=== PATIENT | female | born 1970 | race Caucasian/White ===

== ENCOUNTER 2017-04-27 20:40 | Emergency (ER) | payer SELFPAY ==
[2017-04-27 20:42] VITALS: BP 136/95; PULSE 114; RESP 20; TEMP 99; O2SAT 98
[2017-04-28] MEDS ORDERED: OXYC30TA62 PO (11:51)
[2017-04-28] MEDS ORDERED: CYCL1TAB29 PO (11:51)
[2017-04-28] MEDS ORDERED: SERO300T PO (11:51)
[2017-04-28] MEDS ORDERED: SIMV20TA PO (11:51)
[2017-04-28] MEDS ORDERED: DIAZ5 PO (11:51)
[2017-04-28] MEDS ORDERED: LISI10TA PO (11:51)
[2017-04-28] MEDS ORDERED: IBUP800T23 PO (11:51)
[2017-04-28] MEDS ORDERED: METH2.5T PO (11:51)
[2017-04-28] MEDS ORDERED: CIPR-9 PO (14:55)
== END 2017-04-27 21:51 | disposition left against medical advice (07) ==
LOC: NED 20:40
DX: R10.9 Unspecified abdominal pain (principal)
CPT/HCPCS: 99281

== ENCOUNTER 2017-04-28 11:17 | Emergency (ER) | payer MEDICARE, OTHER ==
[2017-04-28 11:37] VITALS: BP 105/76; PULSE 108; RESP 16; TEMP 98; O2SAT 99
[2017-04-28] MEDS ORDERED: SIMV20TA PO (11:51)
[2017-04-28] MEDS ORDERED: OXYC30TA62 PO (11:51)
[2017-04-28] MEDS ORDERED: CYCL1TAB29 PO (11:51)
[2017-04-28] MEDS ORDERED: SERO300T PO (11:51)
[2017-04-28] MEDS ORDERED: LISI10TA PO (11:51)
[2017-04-28] MEDS ORDERED: DIAZ5 PO (11:51)
[2017-04-28] MEDS ORDERED: IBUP800T23 PO (11:51)
[2017-04-28] MEDS ORDERED: METH2.5T PO (11:51)
[2017-04-28 11:59] LABS: GLUCOSE,URINE NEG (NEG); KETONE, URINE NEG (NEG); NITRITE,URINE NEG (NEG); PH, URINE 5.5 (5.0-8.5)
[2017-04-28 12:07] LABS: BLOOD, URINE MOD (NEG)
[2017-04-28 12:08] LABS: BACTERIA, URINE MOD /hpf; METHOD OF COLLECTION CLEAN CATCH; RBC, URINE 15-19 /hpf (0-3); SQUAMOUS EPITHELIAL CELL URINE > 8 /hpf (0-5); URINE COLOR YELLOW (YELLW/STRAW); WBC, URINE 100-200 /hpf (0-5)
[2017-04-28 12:09] LABS: COMMENT (UR) CULTURE INDICATED; CULTURE IF INDICATED CULTURE INDICATED
--- NOTE | 2017-04-28 12:43 | PD ---
HPI Chief Complaint: Complaint Time Seen by Provider: 12:20 Travel History International Travel<30 days: No Contact w/Intl Traveler<30days: No Traveled to known affect area: No History of Present Illness HPI 46-year-old female with history of psoriasis currently on methotrexate presents emergency department for evaluation of right flank pain and hematuria for 2 days. Patient reports approximately 5 days ago she developed dysuria and suprapubic pain and pressure this was associated with a subjective fever and 3 episodes of vomiting 2 days ago. She reports that on Thursday all symptoms resolved and she developed right flank pain. She denies fever, abdominal pain, nausea or vomiting, dysuria at this time. She reports the pain in the right flank region is constant, nonradiating, worse with movement, 7 out of 10 severity. Patient reports the pain is unrelieved with her chronic pain medicines. PFSH Past Medical History Narrative Medical Psoriasison methotrexate, hypertension, hyperlipidemia, chronic neck and back pain Hx Anticoagulant Therapy: No Cardiovascular Problems: Yes (HTN, CHOL) High Cholesterol: Yes Diabetes: No Hypertension: Yes Musculoskeletal: Yes (Chronic pain R/T traumatic injuries ) Migraines: Yes Tetanus Vaccination: < 5 Years Influenza Vaccination: Yes ?: Not LMP: 2 weeks ago Tubal Ligation: Yes Social History Alcohol Use: Yes (Occ.) Tobacco Use: Yes (1 PPD) Substance Use: No Allergies-Medications (Allergen,Severity, Reaction): Coded Allergies: Adhesives (Verified Allergy, Severe, 04/28/17) Penicillin (Verified Allergy, Severe, 04/28/17) Reported Meds & Prescriptions Reported Meds & Active Scripts Active Reported Methotrexate 2.5 Mg Tab 4 Tab PO Q7D Flexeril (Cyclobenzaprine HCl) 10 Mg Tab 10 Mg PO TID PRN Seroquel (Quetiapine Fumarate) 300 Mg Tab 300 Mg PO DAILY Ibuprofen 800 Mg Tab 800 Mg PO TID PRN Simvastatin 20 Mg Tab 20 Mg PO DAILY Lisinopril-Hctz 10-12.5 Mg Tab 1 Tab PO DAILY Oxycontin (Oxycodone HCl) 30 Mg Tab 15 Mg PO Q8HR PRN Valium (Diazepam) 5 Mg Tab 5 Mg PO DAILY Review of Systems Except as stated in HPI: all other systems reviewed are Neg Physical Exam Narrative GENERAL: [-Alert, well-appearing female, no acute distress] SKIN: Focused skin assessment warm/dry. HEAD: Atraumatic. Normocephalic. EYES: Pupils equal and round. No scleral icterus. No injection or drainage. ENT: No nasal bleeding or discharge. Mucous membranes pink and moist. NECK: Trachea midline. No JVD. CARDIOVASCULAR: Regular rate and rhythm. No murmur appreciated. RESPIRATORY: No accessory muscle use. Clear to auscultation. Breath sounds equal bilaterally. GASTROINTESTINAL: Abdomen soft, non-tender, nondistended. Hepatic and splenic margins not palpable. MUSCULOSKELETAL: No obvious deformities. No clubbing. No cyanosis. No edema. NEUROLOGICAL: Awake and alert. No obvious cranial nerve deficits. Motor grossly within normal limits. Normal speech. PSYCHIATRIC: Appropriate mood and affect; insight and judgment normal. BACK: Right-sided CVA tenderness Data Data Last Documented VS Vital Signs Date Time Temp Pulse Resp B/P Pulse Ox O2 Delivery O2 Flow Rate FiO2 04/28/17 14:35 90 16 93/64 99 Room Air 04/28/17 11:37 98.0 Orders Urinalysis - C+S If Indicated (04/28/17 11:42) Urine Culture (04/28/17 11:50) Basic Metabolic Panel (Bmp) (04/28/17 12:32) Complete Blood Count With Diff (04/28/17 12:32) Lactic Acid (04/28/17 12:32) Ct Abd/Pel W/O Iv Contrast (04/28/17 12:32) Iv Access Insert/Monitor (04/28/17 12:32) Ciprofloxacin 400 Mg Premix (Cipro 400 M (04/28/17 12:45) Sodium Chloride 0.9% Flush (Ns Flush) (04/28/17 12:45) Labs Laboratory Tests Test 04/28/17 04/28/17 11:50 12:45 Urine Collection Type CLEAN CATCH Urine Color YELLOW Urine Turbidity SLIGHT Urine pH 5.5 Urine Specific [place] 1.007 Urine Protein NEG mg/dL Urine Glucose (UA) NEG mg/dL Urine Ketones NEG mg/dL Urine Occult Blood MOD Urine Nitrite NEG Urine Bilirubin NEG Urine Leukocyte Esterase LARGE Urine RBC 15-19 /hpf Urine WBC 100-200 /hpf Urine Squamous Epithelial > 8 /hpf Cells Urine Bacteria MOD /hpf Microscopic Urinalysis Comment CULTURE INDICATED Urine Collection Time 11:50 White Blood Count 8.9 TH/MM3 Red Blood Count 4.19 MIL/MM3 Hemoglobin 13.1 GM/DL Hematocrit 38.5 % Mean Corpuscular Volume 91.9 FL Mean Corpuscular Hemoglobin 31.2 PG Mean Corpuscular Hemoglobin 34.0 % Concent Red Cell Distribution Width 13.3 % Platelet Count 279 TH/MM3 Mean Platelet Volume 8.0 FL Neutrophils (%) (Auto) 68.7 % Lymphocytes (%) (Auto) 22.1 % Monocytes (%) (Auto) 6.6 % Eosinophils (%) (Auto) 1.6 % Basophils (%) (Auto) 1.0 % Neutrophils # (Auto) 6.1 TH/MM3 Lymphocytes # (Auto) 2.0 TH/MM3 Monocytes # (Auto) 0.6 TH/MM3 Eosinophils # (Auto) 0.1 TH/MM3 Basophils # (Auto) 0.1 TH/MM3 CBC Comment DIFF FINAL Differential Comment Sodium Level 142 MEQ/L Potassium Level 4.7 MEQ/L Chloride Level 107 MEQ/L Carbon Dioxide Level 30.5 MEQ/L Anion Gap 5 MEQ/L Blood Urea Nitrogen 9 MG/DL Creatinine 0.82 MG/DL Estimat Glomerular Filtration 75 ML/MIN Rate Random Glucose 95 MG/DL Lactic Acid Level 1.3 mmol/L Calcium Level 9.2 MG/DL MDM Medical Decision Making Medical Screen Exam Complete: Yes Emergency Medical Condition: Yes Differential Diagnosis Pyelonephritis, nephrolithiasis, UTI Narrative Course 46-year-old female with chief complaint of right flank pain and hematuria. Patient is currently on methotrexate for her psoriasis. At this time she denies fever, chills, abdominal pain, nausea or vomiting. On exam she appears mildly uncomfortable. Nontoxic. She has right-sided CVA tenderness. IV access established, UA, labs and CT pending UA: Positive RBCs, WBCs and bacteria CBC: Unremarkable. WBC 8.9 BMP: Unremarkable LACTIC: 1.3 CT abdomen and pelvis: Small bilateral nonobstructing renal calculi. Uncomplicated colonic diverticulitis. Bilateral inguinal fat-containing hernias. 1440 patient reassessed at this time. Diagnostic studies discussed in detail with patient. She remains nontoxic appearing. Labs are reassuring patient can be treated for pyelonephritis on outpatient basis. Return precautions discussed with patient. She verbalizes understanding and agrees to plan Diagnosis Primary Impression: Pyelonephritis Referrals: Primary Care Physician Additional Instructions: Take the antibiotic as prescribed. Treatment plenty of fluids. Return to the emergency department if he developed severe pain, fever or chills , nausea and vomiting. Follow-up with your primary doctor regarding incidental findings on your CT. Scripts Ciprofloxacin (Cipro)500 Mg Xez319 Mg PO BID #14 TAB Ref 0 Prov:Farhana Tay 04/28/17 Disposition: 01 DISCHARGE HOME Condition: Stable Farhana Tay Apr 28, 2017 12:43
[2017-04-28] MEDS ORDERED: SODIUM CHLORIDE 0.9% FLUSH 10 ML FLUSH IV FLUSH PRN (12:45)
[2017-04-28] MEDS ORDERED: CIPROFLOXACIN 400 MG PREMIX 200 ML IV ONE (12:45)
[2017-04-28 12:59] LABS: AUTOMATED NEUTROPHIL # 6.1 TH/MM3 (1.8-7.7); BASOPHIL # 0.1 TH/MM3 (0-0.2); EOSINOPHIL # 0.1 TH/MM3 (0-0.4); EOSINOPHIL % 1.6 % (0.0-4.0); HEMATOCRIT 38.5 % (35.0-46.0); HEMO FLAGS DIFF FINAL; LYMPH % 22.1 % (9.0-44.0); MEAN CELL VOLUME 91.9 FL (80.0-100.0); MEAN CORPUSCULAR HEMOGLOBIN 31.2 PG (27.0-34.0); MONO % 6.6 % (0.0-8.0); NEUT % 68.7 % (16.0-70.0); PLATELET COUNT 279 TH/MM3 (150-450); RED BLOOD COUNT 4.19 MIL/MM3 (4.00-5.30); RED CELL DISTRIBUTION WIDTH 13.3 % (11.6-17.2); WHITE BLOOD COUNT 8.9 TH/MM3 (4.0-11.0)
[2017-04-28 13:08] LABS: POTASSIUM 4.7 MEQ/L (3.5-5.1)
[2017-04-28 13:11] LABS: BICARBONATE 30.5 MEQ/L (21.0-32.0)
--- NOTE | 2017-04-28 14:31 | RADHPO ---
EXAM DATE/TIME: 04/28/2017 13:12 [facility] COMPARISON: No previous studies available for comparison. INDICATIONS : Right lower back pain with hematuria. ORAL CONTRAST: No oral contrast ingested. RADIATION DOSE: 24.07 CTDIvol (mGy) MEDICAL HISTORY : Hypertension. SURGICAL HISTORY : Tubal ligation. ENCOUNTER: Initial ACUITY: 1 day PAIN SCALE: 7/10 LOCATION: Right lower quadrant TECHNIQUE: Volumetric scanning of the abdomen and pelvis was performed. Using automated exposure control and ad justment of the mA and/or kV according to patient size, radiation dose was kept as low as reasonably achievable to obtain optimal diagnostic quality images. FINDINGS: Mild hepatosplenomegaly is noted. Evaluation of the solid organs of the abdomen is limited by the la ck of intravenous contrast. There are tiny calcified gallstones within the gallbladder. Tiny calcif ied non-obstructing bilateral renal calculi are noted. There is no acute obstructive uropathy. The adrenal glands are normal bilaterally. The pancreas is unremarkable. The abdominal aorta is mildly calcified but is not aneurysmal. The inferior vena cava is unremarkable. There is no evidence of re troperitoneal lymphadenopathy. Uncomplicated colonic diverticulosis is noted. There is no acute div erticulitis. Bilateral inguinal hernias containing only fat are noted. The urinary bladder is unrem arkable. No pelvic ascites or pelvic lymphadenopathy is noted. The uterus is unremarkable. CONCLUSION: 1. Tiny calcified non-obstructing bilateral renal calculi. 2. Cholelithiasis. 3. Uncomplicated colonic diverticulosis. 4. Mild Hepatosplenomegaly. 5. Bilateral inguinal hernias containing only fat. Fer Wilks MD on April 28, 2017 at 13:55 Board Certified Radiologist. This report was verified electronically.
[2017-04-28 14:35] VITALS: BP 93/64; PULSE 90; RESP 16; O2SAT 99
[2017-04-28] MEDS ORDERED: CIPR-9 PO (14:55)
[2017-04-28] MEDS ORDERED: CIPROFLOXACIN 500 MG TAB PO ONE (15:00)
== END 2017-04-28 15:05 | disposition home or self-care (01) ==
LOC: PHEFT 11:17
DX: N12 Tubulo-interstitial nephritis, not specified as acute or chronic (principal); B96.20 Unspecified Escherichia coli [E. coli] as the cause of diseases classified elsewhere
CPT/HCPCS: 74176; 80048; 81001; 83605; 85025; 87077; 87086; 87186; 99284